=== PATIENT | male | born 1985 | race Caucasian/White ===

== ENCOUNTER 2024-07-15 09:59 | Emergency (ER) | payer BC ==
[~2024-07-15] VITALS: Ht 188 cm; Wt 108.9 kg
[2024-07-15] MEDS ORDERED: IBUP-1957 PO (12:34)
[2024-07-15] MEDS ORDERED: HYDR-3972 PO (12:34)
[2024-07-15 13:00] VITALS: BP 144/88; TEMP 209.1; O2SAT 99
== END 2024-07-15 13:01 | disposition home or self-care (01) ==
LOC: ER 09:59
DX: M48.54XA Collapsed vertebra, not elsewhere classified, thoracic region, initial encounter for fracture (principal); F17.200 Nicotine dependence, unspecified, uncomplicated; M54.2 Cervicalgia; Z79.899 Other long term (current) drug therapy; W01.0XXA Fall on same level from slipping, tripping and stumbling without subsequent striking against object, initial encounter; Y93.89 Activity, other specified; Y92.89 Other specified places as the place of occurrence of the external cause; Y99.8 Other external cause status
CPT/HCPCS: 72125; 72131; A4606; A4663